=== PATIENT | female | born 1950 | race Caucasian/White ===

== ENCOUNTER → 2019-09-27 11:03 | Outpatient (CLI) | payer MEDICARE, SELFPAY ==
--- NOTE | 2019-09-27 11:08 | XR_ITS ---
PROCEDURE: XR FOOT WT BEARING RT 3V CLINICAL INDICATION: pain Foot pain a COMPARISON: FTR3 FOOT-RT-3 VIEWS from 07/17/2015 FTL3 FOOT-LT-3 VIEWS from 07/17/2015 FINDINGS: No fracture or dislocation. No lytic or blastic change. There is normal mineralization. The there is mild hallux valgus with mild osteoarthritis of the 1st MTP joint. Hammertoe deformity is present at the 2nd toe. Other findings:None. IMPRESSION: Hallux valgus. Hammertoe deformity 2nd toe Dictated by: Chavez Villegas MD 09/27/2019 15:07 Electronically signed by Chavez Villegas MD in [place] 09/27/2019 15:07
--- NOTE | 2019-09-27 11:08 | XR_ITS ---
PROCEDURE: XR FOOT WT BEARING LT 3V CLINICAL INDICATION: pain COMPARISON: 07/17/2015 FINDINGS: There is mild hallux valgus with osteoarthritic change of the 1st MTP joint. Bunion formation is noted. There is severe hammertoe deformity of the 2nd toe No fracture or dislocation. No lytic or blastic change other findings:None. IMPRESSION: The the mild hallux valgus with osteoarthritis, bunion formation, and hammertoe deformity of the 2nd toe. Dictated by: Chavez Villegas MD 09/27/2019 15:05 Electronically signed by Chavez Villegas MD in [place] 09/27/2019 15:05
== END ==
PROVIDERS: PCP Internal Medicine; Visit Provider Podiatrist
DX: M79.671 Pain in right foot (principal); M79.672 Pain in left foot
CPT/HCPCS: 73630

== ENCOUNTER → 2019-10-04 14:58 | Outpatient (CLI) | payer MEDICARE, SELFPAY ==
[2019-10-04 17:14] LABS: Alanine Aminotransferase 20 U/L (12-78); Albumin Level 3.9 gm/dL (3.4-5.0); Albumin/Globulin Ratio 1.3 (1.1-1.8); Alkaline Phosphatase 50 U/L (46-116); Anion Gap 13.3 mEq/L (5-15); Aspartate Amino Transferase 17 U/L (15-37); Bilirubin,Total 0.5 mg/dL (0.2-1.0); Blood Urea Nitrogen 10 mg/dL (7-18); Calcium 9.2 mg/dL (8.5-10.1); Carbon Dioxide 26 mmol/L (21.0-32.0); Chloride 102 mmol/L (98-107); Creatinine,Serum 0.83 mg/dL (0.55-1.02); Estimated Glomerular Filt Rate 69 ml/min (>60); GFR (African American) 83 ML/MIN (>60); Globulin 3.1 gm/dl (1.3-3.2); Glucose 76 mg/dL (74-106); Potassium 4.3 mmoL/L (3.5-5.1); Sodium 137 mmol/L (136-145)
[2019-10-08 06:36] LABS: Vitamin D 25 Hydroxy 29.9 ng/mL (30.0-100.0)
== END ==
PROVIDERS: Visit Provider Podiatrist
DX: B35.1 Tinea unguium (principal); Z13.820 Encounter for screening for osteoporosis; E55.9 Vitamin D deficiency, unspecified
CPT/HCPCS: 36415; 80053; 82652

== ENCOUNTER → 2019-10-23 11:09 | Outpatient (CLI) | payer MEDICARE, SELFPAY ==
[2019-10-23 12:59] LABS: Blood Urea Nitrogen 10 mg/dL (7-18); Creatinine,Serum 0.78 mg/dL (0.55-1.02); Estimated Glomerular Filt Rate 74 ml/min (>60); GFR (African American) 89 ML/MIN (>60)
== END ==
PROVIDERS: Visit Provider Podiatrist
DX: Z01.818 Encounter for other preprocedural examination (principal)
CPT/HCPCS: 36415; 82565; 84520

== ENCOUNTER → 2019-10-24 09:13 | Outpatient (CLI) | payer MEDICARE, SELFPAY ==
--- NOTE | 2019-10-24 09:15 | MR_ITS ---
PROCEDURE: MR FOOT LT WO/W CON CLINICAL INDICATION: pain, surgical planning Hammertoe deformity, bunion, acquired hallux valgus, subchondral cystic evaluation 1st and 2nd metatarsal heads, plantar plate tear, subchondral bone cyst COMPARISON: XR FOOT WT BEARING LT 3V from 09/27/2019 TECHNIQUE: Routine multiplanar multi echo sequences are performed without and with gadolinium enhancement. FINDINGS: There is moderate hallux valgus with osteoarthritic change of the 1st MTP joint. Hammertoe deformity involves the 2nd toe with medial angulation of the toe overlapping the 1st toe dorsally. There is a small cystic area along the lateral aspect of the interphalangeal joint of the great toe measuring approximately 4-5 mm. There is some soft tissue swelling along the plantar aspect of the 1st metatarsophalangeal junction without significant enhancement. No subchondral cystic change at the 1st metatarsophalangeal joint. No obvious ligamentous or tendinous abnormalities. Small amount fluid is present along the posterior aspect of the talocalcaneal joint. No enhancing lesions that would indicate osteomyelitis. Small subchondral cysts are present at the distal aspect of the fibula. IMPRESSION: 1. Hallux valgus with osteoarthritis of the 1st MTP joint. No subchondral cystic change. Small cystic areas present lateral to the 1st interphalangeal joint 2. Hammertoe deformity 2nd toe 3. Mild amount of soft tissue edema along the plantar surface of the foot at the 1st and 2nd metatarsal phalangeal junctions Dictated by: Chavez Villegas MD 10/25/2019 09:35 Electronically signed by Chavez Villegas MD in [place] 10/29/2019 06:54
--- NOTE | 2019-10-24 09:15 | XR_ITS ---
PROCEDURE: XR DEXA AXIAL SKELETON CLINICAL HISTORY: surgical planning, family hx COMPARISON: No exams were available for comparison FINDINGS: L1-L4 density is 1.172 grams/centimeters sq with a T-score of -0.1. Right femoral neck density is 0.823 grams/centimeters sq with T-score of -1.5 consistent with osteopenia. IMPRESSION: Osteopenia with moderate fracture risk. Treatment advised. Suggest follow-up exam in 2 years Dictated by: Chavez Villegas MD 10/24/2019 16:31 Electronically signed by Chavez Villegas MD in [place] 10/24/2019 16:31
--- NOTE | 2019-10-24 10:50 | HMH.ITSHM ---
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 [PREMARIN SYNTHROID WELLBUTRIN
== END ==
PROVIDERS: PCP Internal Medicine; Visit Provider Podiatrist
DX: M81.0 Age-related osteoporosis without current pathological fracture (principal); M20.11 Hallux valgus (acquired), right foot; M20.12 Hallux valgus (acquired), left foot
CPT/HCPCS: 73720; 77080; A9576

== ENCOUNTER → 2020-01-09 13:24 | Outpatient (POV) | payer MEDICARE, SELFPAY | DX: Z00.00 Encounter for general adult medical examination without abnormal findings (principal) ==

== ENCOUNTER → 2020-05-30 09:43 | Outpatient (CLI) | payer MEDICARE, SELFPAY ==
--- NOTE | 2020-05-30 09:49 | XR_ITS ---
PROCEDURE: XR HIP LT 2-3V W/PELVIS CLINICAL INDICATION: L HIP AND PELVIS PAIN COMPARISON: No exams were available for comparison FINDINGS: No fracture or dislocation is evident. No significant degenerative change. No lytic or blastic change. Unremarkable soft tissues. IMPRESSION: No acute findings. Dictated by: Dr. Dariel Umaña MD 05/30/2020 10:[address] Dariel Umaña MD in [place] 05/30/2020 10:08
== END ==
PROVIDERS: PCP Internal Medicine; Visit Provider Internal Medicine
DX: M25.552 Pain in left hip (principal); R10.2 Pelvic and perineal pain
CPT/HCPCS: 73502

== ENCOUNTER 2020-06-30 10:27 | Emergency (ER) | payer MEDICARE, SELFPAY ==
[2020-06-30 10:29] VITALS: BP 143/71; PULSE 98; RESP 18; TEMP 36.9; O2SAT 98; BMI 29.2
--- NOTE | 2020-06-30 10:42 | PC.NURSE ---
Pt up to restroom
--- NOTE | 2020-06-30 10:47 | HMH.EDGENADL ---
ED Disposition Clinical Impression: Nausea, Malaise Disposition: Home, Self-Care Condition on Discharge: Good Instructions: DI for Nausea -- Adult, DI for Viral Syndrome Prescriptions: Promethazine HCl 12.5 mg PO Q6 PRN #8 tab PRN Reason: Nausea Transmission Status: Pending to [facility] Referrals: Owen Laura [Primary Care Provider] - 3 days - Critical Care Critical Care Time: No Attestation: On , the high probability of a clinically significant, sudden or life threatening deterioration of the following system(s) required my full and direct attention, intervention and personal management. The time I documented below is in addition to time spent performing reported procedures but includes the following listed in this critical care notation. Medical Decision Making - Medical Records Medical records reviewed: Yes: I reviewed the patient's medical records. - Matthieu Inquiry Pt receiving controlled substance: No Vital Signs: 06/30/20 10:29 06/30/20 11:01 Temperature 98.5 F Temperature Source Oral Pulse Rate [Right] 98 H 88 Respiratory Rate 18 Blood Pressure [Right Arm] 143/71 H 124/70 Blood Pressure Mean [Right Arm] 95 88 Blood Pressure Source [Right Arm] Automatic Cuff Blood Pressure Position [Right Arm] Sitting 02 Sat by Pulse Oximetry 98 97 Oxygen Delivery Method Room Air - Lab Data Lab results reviewed: Yes: I reviewed the patient's lab results. Lab Results 06/30/20 10:52: Urine Color Yellow, Urine Appearance Clear, Urine pH 5.5, Ur Specific [place] 1.015, Urine Protein Negative, Urine Glucose (UA) Negative, Urine Ketones Negative, Urine Blood Negative, Urine Nitrate Negative, Urine Bilirubin Negative, Urine Urobilinogen 0.2, Ur Leukocyte Esterase Negative, Urine WBC 3-5, Ur Squamous Epith Cells 5-10 06/30/20 11:20: WBC 7.3, RBC 4.09 L, Hgb 12.8, Hct 37.9, MCV 92.8, MCH 31.4 H, MCHC 33.8, RDW 13.4, Plt Count 324, MPV 8.3, Neut % (Auto) 67.0, Lymph % (Auto) 27.0, [place] % (Auto) 3.7, Eos % (Auto) 1.9, Baso % (Auto) 0.5, Neut # (Auto) 4.9, Lymph # (Auto) 2.0, [place] # (Auto) 0.3, Eos # (Auto) 0.1, Baso # (Auto) 0.0 06/30/20 11:20: Sodium 140, Potassium 3.7, Chloride 105, Carbon Dioxide 27, Anion Gap 11.7, BUN 6 L, Creatinine 0.70, Estimated Creat Clear 65, Estimated GFR 83, Est GFR ( Amer) 101, Glucose 92, Calcium 9.3, Total Bilirubin 0.6, AST 20, ALT 14, Alkaline Phosphatase 130 H, Troponin I < 0.01, Total Protein 6.7, Albumin 4.0, Globulin 2.7, Albumin/Globulin Ratio 1.5, Lipase 36 06/30/20 11:20: Lactate 1.2 Result diagrams: 06/30/20 11:20 06/30/20 11:20 Orders (Tests/Meds): ED MEDICATIONS Generic Name Dose Route Start Last Admin Trade Name Freq PRN Reason Stop Dose Admin Sodium Chloride 1,000 mls @ 999 mls/hr 06/30/20 11:15 06/30/20 11:30 Sod Chlor 0.9% 1000ml Bag IV 06/30/20 12:15 999 mls/hr .Q1H1M ZAC Administration Discontinued Medications Generic Name Dose Route Start Last Admin Trade Name Freq PRN Reason Stop Dose Admin Ondansetron HCl 4 mg 06/30/20 10:41 06/30/20 10:51 Zofran 4mg Odt SL 06/30/20 10:42 4 mg ONCE ONE Administration - ECG Data Tracing #1 EKG at 1137 shows normal sinus rhythm with a rate of 82. No acute ST segment elevation or depression. No hyperacute T waves. Normal intervals. EKG interpreted by me. Medical Decision Narrative: Afebrile here, shows some slight dehydration in her lab work, is given a liter of fluids. She has no urinary tract infection, no signs of biliary obstruction or pancreatitis. She has a nontender abdomen and no chest pain so I have low suspicion at this time for acute abdomen such as perforated viscus, bowel obstruction, biliary obstruction, diverticulitis or appendicitis. EKG and troponin are negative and patient has no chest pain, unlikely ACS. Possible viral syndrome. Recommended staying home until 3 days symptom-free and following up with primary care provider. She is
[2020-06-30 10:54] LABS: Microscopic, Urine URINE MICROSCOPIC (MICROSCOPIC)
[2020-06-30 10:55] LABS: Appearance,Urine CLEAR (Clear); Bilirubin,Urine Negative (Negative); Blood, Urine Negative (Negative); Color,Urine YELLOW (Yellow); Glucose,Urine (UA) Negative (Negative); Ketones,Urine Negative (Negative); Leukocyte Esterase,Urine Negative (Negative); Nitrate,Urine Negative (Negative); PH,Urine 5.5 (5.0-8.5); Protein,Urine Negative (Negative); Specific Gravity, Urine 1.015 (1.005-1.030); Urobilinogen,Urine 0.2 EU/dl (0.2)
[2020-06-30 11:01] VITALS: BP 124/70; PULSE 88; O2SAT 97
[2020-06-30 11:27] LABS: Basophils % 0.5 % (0.1-2.0); Eosinophils # 0.1 K/mm3 (0.0-0.4); Eosinophils % 1.9 % (0.1-12.0); Hematocrit 37.9 % (37.0-47.0); Hemoglobin 12.8 g/dL (12.2-16.2); Mean Corpuscular HGB Conc 33.8 g/dL (31.8-35.4); Mean Corpuscular Hemoglobin 31.4 pg (27.0-31.2); Mean Corpuscular Volume 92.8 fl (81-99); Mean Platelet Volume 8.3 fl (7.4-10.4); Monocytes # 0.3 K/mm3 (0.1-1.0); Monocytes % 3.7 % (1.7-9.3); Neutrophils # 4.9 K/mm3 (1.8-7.8); Platelet Count 324 K/mm3 (142-424); Red Blood Count 4.09 M/mm3 (4.20-5.40); Red Cell Distribution Width 13.4 % (11.5-17.5); White Blood Count 7.3 K/mm3 (4.8-10.8)
[2020-06-30 11:34] LABS: Chloride 105 mmol/L (98-107); Potassium 3.7 mmoL/L (3.5-5.1); Sodium 140 mmol/L (136-145)
[2020-06-30 11:36] LABS: Blood Urea Nitrogen 6 mg/dl (7-17); Creatinine Clearance Estimated 65 mL/min (50-200); Estimated Glomerular Filt Rate 83 ml/min (>60); GFR (African American) 101 ML/MIN (>60); Lactic Acid 1.2 mmol/L (0.7-2.1)
[2020-06-30 11:37] LABS: Alanine Aminotransferase 14 U/L (12-78); Albumin/Globulin Ratio 1.5 (1.1-1.8); Alkaline Phosphatase 130 U/L (38-126); Anion Gap 11.7 mEq/L (5-15); Aspartate Amino Transferase 20 U/L (14-36); Bilirubin,Total 0.6 mg/dl (0.2-1.3); Calcium 9.3 mg/dl (8.4-10.2); Carbon Dioxide 27 mmol/L (22.0-30.0); Globulin 2.7 g/dL (1.3-3.2); Glucose 92 mg/dl (74-100); Lipase 36 U/L (23-300); Total Protein,Serum 6.7 g/dl (6.3-8.2)
--- NOTE | 2020-06-30 11:37 | ECG_ITS ---
APPROVED REPORT Exam: Resting ECG HR:82 bpm ECG Measurements Heart Rate 82 AXES OR 180 P 44 QRSd 94 QRS 23 QT 378 T 28 QTc 441 <Conclusion> Normal sinus rhythm Possible Left atrial enlargement Borderline ECG Electronically signed by : Juan Hart, 07/02/2020 17:33:30
[2020-06-30 11:51] LABS: Troponin I < 0.01 ng/ml (0.00-0.034)
[2020-06-30 11:57] VITALS: BP 142/67; PULSE 88; O2SAT 99
[2020-06-30 12:14] VITALS: BP 142/67; PULSE 88; RESP 18; TEMP 36.9; O2SAT 98
== END 2020-06-30 12:16 | disposition home or self-care (01) ==
PROVIDERS: Emergency Provider Emergency Medicine; PCP Internal Medicine
DX: R11.0 Nausea (principal); R53.81 Other malaise; R51 Headache; F33.1 Major depressive disorder, recurrent, moderate; E03.9 Hypothyroidism, unspecified
CPT/HCPCS: 80053; 81001; 83605; 83690; 84484; 85025; 93005; 96365; 96367; 96375; 99283; 99284

== ENCOUNTER 2020-12-15 12:58 | Emergency (ER) | payer MEDICARE, SELFPAY ==
[2020-12-15 13:00] VITALS: BP 119/60; PULSE 86; RESP 18; TEMP 36.8; O2SAT 99; BMI 28.0
--- NOTE | 2020-12-15 13:17 | HMH.EDUTC ---
[facility] Disposition Clinical Impression: Encounter for laboratory testing for COVID-19 virus Fatigue Qualifiers: Fatigue type: unspecified Qualified Code(s): R53.83 - Other fatigue Disposition: Home, Self-Care Condition on Discharge: Good Instructions: Fatigue (Alternative Therapy), DI for Fatigue, DI for COVID-19 (Suspected or Confirmed ), Coronavirus Disease 2018, Preventing the Spread of Coronavirus Discharge Instructions Additional Instructions: *Monitor Temp, Over the counter Motrin or Tylenol as directed/as needed Tylenol every 4 hours and Motrin every 6 hours (as long as your family doctor has told you that you can take it) for fever or pain. and straight to ER if unable to lower temp less than 101.0 after medication given *Warm salt water gargles may help to soothe the throat *Throat Lozenges *Warm fluids like tea with honey may help to soothe the throat *Sleep elevated *Humidifier/Vaporizer Follow up IMMEDIATELY for new or worsening symptoms or no Noticeable improvement over the next 48-72 hours. 911 for difficulty breathing or swallowing You were tested for today for COVID19 your test result should be back in the next 24-48 hours, you may call to the [facility] to see if your test results are back in the next 48 hours [phone] [facility] hours are 9am-9pm You was given a handout with instructions for Self Quarantine and Self isolation for while you wait on test results and what to do if they are positive If you are positive the Health Dept will be contacting you also Referrals: Owen Laura [Primary Care Provider] - As needed Time of Disposition: 13:24 Medical Decision Making - Matthieu Inquiry Pt receiving controlled substance: No Matthieu was queried for this patient: No Vital Signs: 12/15/20 13:00 12/15/20 13:28 Temperature 98.2 F 98.2 F Temperature Source Oral Pulse Rate 86 Pulse Rate [Right Brachial] 86 Respiratory Rate 18 18 Blood Pressure 119/60 Blood Pressure [Right Arm] 119/60 Blood Pressure Mean [Right Arm] 79 Blood Pressure Source [Right Arm] Automatic Cuff Blood Pressure Position [Right Arm] Sitting 02 Sat by Pulse Oximetry 99 Oxygen Delivery Method Room Air Orders (Tests/Meds): ORDERS Category Date Time Status Covid-19 Nasal PCR ([facility]) Routine Lab 12/15/20 13:10 Received Medical Decision Narrative: After speaking with patient and her reported that she fainted earlier this morning recommended that she be transferred to the ED for further work up and evaluation and patient declined transfer and any further testing except COVID States that she is feeling achy and fatigued but other than that she feels ok and she just wants to get tested for COVID Recommended follow up with her PCP and/or straight to ER if any other episodes of syncope or worsening of symptoms [facility] HPI - General Stated complaint: wants covid test Time Seen by Provider: 12/15/20 13:18 Mode of Arrival: Ambulatory Source of Information: Patient Limitations: No Limitations Description of Symptoms (Recalled from Triage Doc. by RN): PATIENT C/O WEAKNESS AND FATIGUE X SEVERAL DAYS. REPORTS SHE FAINTED THIS MORNING; WAS PRESENT AND CAUGHT HER BEFORE SHE COULD HIT THE FLOOR. HER DAUGHTER SPOKE WITH PATIENT'S PCP WHO RECOMMENDED PATIENT GET A COVID TEST HEENT Symptoms (Recalled from RN notes): No Resp Symptoms (Recalled from RN notes): No Skin Symptoms (Recalled from RN notes): No MS Symptoms (Recalled from RN notes): No Functional Status (Recalled from RN notes): WNL - History of Present Illness Provider Complaint: Patient states that she has been feeling weak and tired for the last couple of days States that this morning she felt weak like she was going to pass out and she thinks she may have fainted and her was there to keep her from hitting the floor States that her daughter was worried and called her PCP and they recommended that she come in and get tested for COVID States that she if feeling ok right
[2020-12-15 13:28] VITALS: BP 119/60; PULSE 86; RESP 18; TEMP 36.8; O2SAT 99
== END 2020-12-15 13:31 | disposition home or self-care (01) ==
PROVIDERS: Emergency Provider Nurse Practitioner; PCP Internal Medicine
DX: R55 Syncope and collapse (principal); Z20.822 Contact with and (suspected) exposure to COVID-19; R53.83 Other fatigue; F33.1 Major depressive disorder, recurrent, moderate; E03.9 Hypothyroidism, unspecified; Z79.899 Other long term (current) drug therapy
CPT/HCPCS: G0463; 99202; U0003

== ENCOUNTER → 2021-02-25 13:30 | Outpatient (POV) | payer MEDICARE, SELFPAY | DX: Z00.00 Encounter for general adult medical examination without abnormal findings (principal) ==

== ENCOUNTER → 2021-04-03 10:44 | Outpatient (CLI) | payer MEDICARE, SELFPAY | PROVIDERS: Visit Provider Internal Medicine Gastroenterology | DX: Z01.812 Encounter for preprocedural laboratory examination (principal); Z20.822 Contact with and (suspected) exposure to COVID-19; Z12.11 Encounter for screening for malignant neoplasm of colon | CPT/HCPCS: U0003 ==

== ENCOUNTER 2021-04-06 09:16 | Day surgery (SDC) | payer MEDICARE, SELFPAY ==
[2021-03-31 10:24] VITALS: BMI 28.3
[2021-04-06 09:51] VITALS: BP 138/62; PULSE 67; RESP 18; TEMP 36.2; O2SAT 100
--- NOTE | 2021-04-06 10:15 | HMH.ANESCL ---
[facility] Anesthesia Checklist - Patient Identification Patient Identification: Arm Band - Structural Data Admitted From: Home Planned Operative Procedure/s: Colonoscopy Consent for Planned Operative Procedure(s) Verified: Yes - NPO Status Verified Time NPO: 00:00 - Additional verifications Anesthesia Reactions: Yes (feels like she cant breath when waking up) - Airway Assessment C-Spine Mobility Assessed: Yes TMJ Mobility Assessed: Yes Dentition: Good Dentition - Neurological Assessment Level of Consciousness: Awake Hx Seizures: No Numbness or tingling in extremities: No - Anesthesia Plan Anesthesia Risk discussed: Yes Anesthesia Plan: Verified ASA Class: II Anesthesia Type: MAC [facility] History I have reviewed the patient's past medical history: Yes Medical History: Reports:: Depression Denies:: Cancer, Diabetes Mellitus Type 1, Diabetes Mellitus Type 2, Internal Pacemaker, Lung Disease, MRSA, Seizures *Have you ever received a pneumonia vaccine?: No *Have you received a flu vaccine this season?: Yes Other Medical History: Reports: Arthritis, Hypothyroidism, Sinus Problems Anesthesia experience/problems:: None Other Surgeries: Yes: Hysterectomy-Total, Hysterectomy-Partial. No: Pacemaker Amputation: No Fractures: No - *Social History Last grade of school completed: Advanced degree Smoking Status: Never smoker Alcohol Intake: never Alcohol Intake Frequency:: other Substance Use Type: denies use *Occupational Status:: other Housing: house Household Members: spouse *Travel in the last 8 weeks: None - Psychiatric History Pschychiatric History:: Reports:: Depression Family Hx:: Diabetes, Stroke, Hypertension, Hyperlipidemia, Thyroid Disorder, Cancer
[2021-04-06 10:44] VITALS: O2SAT 98
--- NOTE | 2021-04-06 11:13 | HMH.PROC ---
[facility] Procedure Note Procedure Note:: Colonoscopy Procedure Report: Colonoscopy with cold snare polypectomy and hemorrhoid band ligation Endoscopist: Karri Wilson II, MD Referring physician: Owen Laura MD Date of Procedure: April 06, 2021 Equipment: Olympus 190 variable stiffness pediatric colonoscope Sedation: MAC sedation Indication: Mrs. Coronado is a 70-year-old female who is here for repeat surveillance colonoscopy secondary to a personal history of advanced adenomatous colon polyps. She did have a colonoscopy in February 2018 and had a 30 mm adenomatous polyp of the rectum and 2 additional diminutive adenomatous polyps. Based upon the large size and advanced adenomatous nature, I did recommend surveillance at 2 years. She reports frequent and regular hemorrhoidal bleeding with her bowel movements and is requesting hemorrhoid banding. The patient does have moderate bloating with some abdominal discomfort. She does have a history of constipation. She reports no weight loss or family history of colon cancer. Procedure: Prior to the procedure, a history and physical exam was performed, and patient's medications and allergies were reviewed. The risks, benefits and alternatives of the sedation and procedure were discussed with the patient. All questions were answered and informed consent was obtained. The patient was brought to the procedure room. Patient identification and proposed procedure were verified by the physician and the nurse. The patient was placed in a left lateral decubitus position and the scope was passed under direct vision. Throughout the procedure, the patient's blood pressure, pulse, and oxygen saturations were monitored continuously. The colonoscopy was accomplished without difficulty. The patient tolerated the procedure well. Findings: On digital rectal examination there was normal rectal tone. There were external hemorrhoidal tags. The colonoscope was introduced through the anal canal to the rectum and advanced to the cecum. The ileocecal valve and appendiceal orifice were identified. The scope was advanced a short distance into the ileum which appeared grossly normal. The scope was then withdrawn into the colon. There were 3 colon polyps identified (cecum x1 (5 mm), descending x1 (4 mm) and rectum x1 (11 mm)) which were all removed via cold snare polypectomy. The remaining cecum, ascending and transverse colon and mucosa were grossly normal. There were scattered diverticuli throughout the descending and sigmoid colon (LEFT colon). The rectum itself was normal. Upon retroflexion within the rectum there were grade 2 internal hemorrhoids. 3 columns of hemorrhoids were banded using 3 bands with excellent ligation effect. The preparation was excellent throughout with [place] Preparation Score of 9. The cecal time was 12 minutes. Impression: 1. Colonic polyps x3 2. Left-sided diverticulosis 3. Grade 2 internal hemorrhoids status post band ligation x3 Plan: I will follow up the polyp pathology and recommend repeat colonoscopy again in 5 years based upon the polyp histology. I would encourage a fiber bowel regimen on a long-term daily maintenance basis. I am aware that she does get bloating and I do feel that if she uses the dietary measures with the fiber bowel regimen routinely her bloating should diminish. This bloating is due to fecal retention with colonic fermentation/gas formation. The other alternative would be use of Zelnorm with some bulk. I would consider C 13 sucrose breath testing because of her chronic bloating.
[2021-04-06 11:24] VITALS: BP 109/64; PULSE 69; RESP 18; TEMP 36.1; O2SAT 98
[2021-04-06 11:34] VITALS: BP 117/66; PULSE 71; RESP 18; O2SAT 99
[2021-04-06 11:44] VITALS: BP 138/69; PULSE 57; RESP 18; O2SAT 100
[2021-04-06 12:01] VITALS: BP 142/68; PULSE 59; RESP 18; O2SAT 99
== END 2021-04-06 12:10 | disposition home or self-care (01) ==
LOC: OUTP 09:17
PROVIDERS: PCP Internal Medicine; Visit Provider Internal Medicine Gastroenterology
PROC: 0DJD8ZZ Inspection of Lower Intestinal Tract, Via Natural or Artificial Opening Endoscopic (ICD-10-PCS; CPT 45378; principal; 2021-04-06 10:30)
DX: Z12.11 Encounter for screening for malignant neoplasm of colon (principal); K62.1 Rectal polyp; K63.5 Polyp of colon; K57.30 Diverticulosis of large intestine without perforation or abscess without bleeding; K64.1 Second degree hemorrhoids; Z86.010 Personal history of colon polyps; F32.9 Major depressive disorder, single episode, unspecified; M19.90 Unspecified osteoarthritis, unspecified site; E03.9 Hypothyroidism, unspecified; Z83.3 Family history of diabetes mellitus; Z82.3 Family history of stroke; Z82.49 Family history of ischemic heart disease and other diseases of the circulatory system; Z83.49 Family history of other endocrine, nutritional and metabolic diseases
CPT/HCPCS: 45385; 45398; 88305

== ENCOUNTER → 2022-03-16 13:10 | Outpatient (CLI) | payer MEDICARE, SELFPAY ==
[2022-03-16 14:18] LABS: Basophils # 0.1 K/mm3 (0-0.2); Eosinophils # 0.1 K/mm3 (0.0-0.4); Eosinophils % 2.3 % (0.1-12.0); Hematocrit 36.5 % (37.0-47.0); Lymphocytes # 2.5 K/mm3 (0.7-4.5); Lymphocytes % 39.7 % (10-50); Mean Corpuscular HGB Conc 32.8 g/dL (31.8-35.4); Mean Corpuscular Hemoglobin 31.4 pg (27.0-31.2); Mean Corpuscular Volume 95.8 fl (81-99); Mean Platelet Volume 9.3 fl (7.4-10.4); Monocytes # 0.4 K/mm3 (0.1-1.0); Monocytes % 6.4 % (1.7-9.3); Neutrophils # 3.1 K/mm3 (1.8-7.8); Neutrophils % 50.6 % (37.0-80.0); Platelet Count 530 K/mm3 (142-424); Red Blood Count 3.81 M/mm3 (4.20-5.40); Red Cell Distribution Width 14.4 % (11.5-17.5); White Blood Count 6.2 K/mm3 (4.8-10.8)
[2022-03-16 14:33] LABS: Alanine Aminotransferase 14 U/L (12-78); Albumin Level 4.1 g/dl (3.5-5.0); Albumin/Globulin Ratio 1.8 (1.1-1.8); Anion Gap 11.5 mEq/L (5-15); Aspartate Amino Transferase 21 U/L (14-36); Blood Urea Nitrogen 8 mg/dl (7-17); Calcium 9.2 mg/dl (8.4-10.2); Carbon Dioxide 28 mmol/L (22.0-30.0); Chloride 103 mmol/L (98-107); Cholesterol 257 mg/dl (140-200); Estimated Glomerular Filt Rate 99 ml/min (>60); GFR (African American) 120 ML/MIN (>60); Globulin 2.3 g/dL (1.3-3.2); Glucose 80 mg/dl (74-100); HDL Cholesterol 101 mg/dl (40-60); Potassium 4.5 mmoL/L (3.5-5.1); Sodium 138 mmol/L (136-145); Total Protein,Serum 6.4 g/dl (6.3-8.2); Triglycerides 136 mg/dl (30-150); VLDL Cholesterol 27 mg/dL (0-40)
[2022-03-16 14:34] LABS: Alkaline Phosphatase 52 U/L (38-126); Chol/HDL Ratio 2.5 (1-3.5)
[2022-03-16 14:45] LABS: Direct LDL Cholesterol 110.56 mg/dL (100-129)
[2022-03-16 15:02] LABS: Thyroid Stimulating Hormone 0.58 uIU/mL (0.465-4.68)
== END ==
PROVIDERS: PCP Internal Medicine; Visit Provider Internal Medicine
DX: E03.9 Hypothyroidism, unspecified (principal); E78.5 Hyperlipidemia, unspecified; M70.61 Trochanteric bursitis, right hip
CPT/HCPCS: 80053; 80061; 84443; 85025

== ENCOUNTER → 2022-03-23 12:51 | Outpatient (CLI) | payer MEDICARE, SELFPAY ==
[2022-03-23 14:24] LABS: Iron 90 ug/dL (37-170)
[2022-03-23 14:38] LABS: Total Iron Binding Capacity 333 ug/dL (265-497)
== END ==
PROVIDERS: PCP Internal Medicine; Visit Provider Internal Medicine
DX: D64.9 Anemia, unspecified (principal)
CPT/HCPCS: 83540; 83550

== ENCOUNTER → 2022-04-07 10:40 | Outpatient (CLI) | payer MEDICARE, SELFPAY ==
--- NOTE | 2022-04-07 10:53 | XR_ITS ---
FINAL REPORT CLINICAL HISTORY: left knee pain FINDINGS: AP, lateral and oblique views of the left knee were obtained. There is no prior exam for comparison. There is no acute osseous abnormality of the left knee. There is degenerative joint disease which is most pronounced at the patellofemoral compartment. There are several calcifications in the posterior medial soft tissues which could be loose bodies within a popliteal cyst. There is no joint effusion. IMPRESSION: 1. Degenerative joint disease most pronounced at the patellofemoral compartment. 2. Several calcifications in the posterior medial soft tissues which could be loose bodies within a popliteal cyst. Reviewed, Interpreted and Dictated by Ligia Kamara MD Transcribed by Sameera Wong Authenticated by Ligia Kamara MD on 04/07/2022 01:21:11 PM [facility]
== END ==
PROVIDERS: PCP Internal Medicine; Visit Provider Internal Medicine
DX: M25.562 Pain in left knee (principal)
CPT/HCPCS: 73562

== ENCOUNTER → 2022-06-02 15:16 | Outpatient (CLI) | payer MEDICARE, SELFPAY ==
--- NOTE | 2022-06-02 15:29 | XR_ITS ---
FINAL REPORT CLINICAL HISTORY: RT KNEE PAIN, DJD FINDINGS: RIGHT KNEE Three views of the right knee reveal no evidence of fracture or dislocation. The bony alignment is normal. There is mild and moderate degenerative change, greatest involving the patellofemoral joint. There is no evidence of joint effusion. There is a chronic calcification superior to the patella. IMPRESSION: No acute abnormality identified. Reviewed, Interpreted and Dictated by Elvin Thibodeaux III, MD Transcribed by Sameera Wong Authenticated and [facility]
== END ==
PROVIDERS: PCP Internal Medicine; Visit Provider Internal Medicine
DX: M25.561 Pain in right knee (principal); M17.11 Unilateral primary osteoarthritis, right knee
CPT/HCPCS: 73562

== ENCOUNTER → 2022-12-13 15:52 | Outpatient (CLI) | payer MEDICARE, SELFPAY ==
--- NOTE | 2022-12-13 15:56 | XR_ITS ---
FINAL REPORT TECHNIQUE: Chest PA & Lateral CLINICAL HISTORY: PRODUCTIVE COUGH, LIGHT HEADED, HEART FLUTTERS FINDINGS: 2 views of the chest were performed. The heart size is normal. The mediastinum is within normal limits. There is no acute cardiopulmonary process. There are no pleural effusions. There is no pneumothorax. The bony thorax appears intact. IMPRESSION: No acute cardiopulmonary process. Reviewed, Interpreted and Dictated by Elvin Thibodeaux III, MD Transcribed by Ady Ness Authenticated and [facility]
--- NOTE | 2022-12-13 16:15 | ECG_ITS ---
APPROVED REPORT Exam: Resting ECG HR:83 bpm ECG Measurements Heart Rate 83 AXES AK 168 P 56 QRSd 101 QRS 40 QT 349 T 15 QTc 389 Conclusion SINUS RHYTHM NORMAL ECG Electronically signed by : Owen Laura MD 12/15/2022 17:09:12
== END ==
PROVIDERS: PCP Internal Medicine; Visit Provider Internal Medicine
DX: R00.2 Palpitations (principal); R05.9 Cough, unspecified
CPT/HCPCS: 71046; 93005

== ENCOUNTER → 2022-12-17 11:52 | Outpatient (CLI) | payer MEDICARE, SELFPAY ==
[2022-12-17 12:28] LABS: Basophils # 0.1 K/mm3 (0-0.2); Basophils % 0.9 % (0.1-2.0); Eosinophils # 0.2 K/mm3 (0.0-0.4); Eosinophils % 2.1 % (0.1-12.0); Hematocrit 38.9 % (37.0-47.0); Hemoglobin 12.7 g/dL (12.2-16.2); Lymphocytes # 2.6 K/mm3 (0.7-4.5); Lymphocytes % 32.8 % (10-50); Mean Corpuscular HGB Conc 32.7 g/dL (31.8-35.4); Mean Corpuscular Hemoglobin 30.2 pg (27.0-31.2); Mean Corpuscular Volume 92.4 fl (81-99); Mean Platelet Volume 7.9 fl (7.4-10.4); Monocytes # 0.3 K/mm3 (0.1-1.0); Monocytes % 3.8 % (1.7-9.3); Neutrophils # 4.9 K/mm3 (1.8-7.8); Neutrophils % 60.4 % (37.0-80.0); Platelet Count 450 K/mm3 (142-424); Red Blood Count 4.21 M/mm3 (4.20-5.40); Red Cell Distribution Width 13.2 % (11.5-17.5); White Blood Count 8.1 K/mm3 (4.8-10.8)
[2022-12-17 13:45] LABS: Thyroid Stimulating Hormone 0.88 uIU/mL (0.465-4.68)
== END ==
PROVIDERS: PCP Internal Medicine; Visit Provider Internal Medicine
DX: R06.09 Other forms of dyspnea (principal); R00.2 Palpitations
CPT/HCPCS: 36415; 84443; 85025; 93225; 93226

== ENCOUNTER → 2022-12-21 14:15 | Outpatient (CLI) | payer MEDICARE, SELFPAY ==
--- NOTE | 2022-12-21 14:18 | CA_ITS ---
APPROVED REPORT EXAM: Comprehensive 2D, Doppler, and color-flow Echocardiogram Central Supply Supervisor: Sarah Hernandez RVT Ht: 5 ft 3 in Wt: 170lbs BSA: 1.80 BP: 119/71 mmHg Indications: PALPS,SOA 2D Dimensions LVOT 1.82 cm (M/F) 1.5-2.5 LA Volume 43.40 mL LA Volume Index 23.98 mL/m2 (M/F) 16-34 M-Mode Dimensions RVDd 2.16 cm (0.9-2.6) LA Diam 3.53 cm (1.9-4.0) LVDd 5.08 cm (3.5-5.7) Ao Diam 2.56 cm (2.0-3.7) LVDs 3.52 cm (3.5-5.7) IVSd 0.82 cm (0.6-1.1) PWd 0.57 cm (0.6-1.1) EF (Teich) 57.90% FS 30.70% EDV (Teich) 122.70 mL TAPSE 1.94 (<1.7) ESV (Teich) 51.60 mL LV Diastology E Decel Time 150.00 (160-240 msec) E/A Ratio 1.0 MED E' 8.40 (< 7 cm/sec) E'/MED E' Ratio 8.99 (>14) LAT E' 11.10 (<10 cm/sec) E/LAT E' Ratio 6.80 (>14) Aortic Valve AO Peak GR. 5.80 mmHg Mitral Valve MV E Max Anthony. 76.00 (40-130 cm/s) MV A Velocity 74.00 (40-130 cm/s) E/A Ratio 1.02 MV Decel. Time 150.00 (160-240 ms) MV PHT 44.00 ms Pulmonary Valve PV Peak Velocity 68.00 (50-150 cm/s) Tricuspid Valve TR P. Velocity 258.00 cm/s RAP Estimate 10.00 mmHg RVSP 36.70 mmHg Left Ventricle Left atrium is normal size, left ventricle is normal size, estimated ejection fraction 55% with no regional wall motion abnormality, diastolic parameters are within normal range. Right Ventricle Right atrium and left ventricular normal size and contractility. Aortic Valve Aortic valve is minimally thickened and fibrosed there is no aortic stenosis aortic insufficiency. Mitral Valve Micro was grossly normal, there is trace mitral regurgitation. Tricuspid Valve Tricuspid grossly normal, there is trace tricuspid regurgitation, tricuspid regurgitation jet plasty is inadequate for calculation of the right ventricular systolic pressure. Pulmonic Valve Pulmonic valve is poorly visualized. Great Vessels Aortic root is normal size. Inferior vena cava is normal size with normal inspiratory collapse. Pericardium No significant pericardial effusion noted. Conclusion 1. Normal left ventricular size preserved left ventricular systolic function, estimated ejection fraction of 55% with no regional wall motion abnormality, diastolic parameters are within normal range. 2. Trace mitral and tricuspid regurgitation. 3. No significant pericardial effusion noted. 4. Inferior vena cava is normal size with normal inspiratory collapse. Electronically signed by : Sebastian Bain MD 12/21/2022 19:12:53
== END ==
PROVIDERS: PCP Internal Medicine; Visit Provider Internal Medicine
DX: R06.02 Shortness of breath (principal); R00.2 Palpitations
CPT/HCPCS: 93306

== ENCOUNTER → 2023-03-16 11:49 | Outpatient (CLI) | payer MEDICARE, SELFPAY ==
[2023-03-16 12:36] LABS: Basophils % 0.5 % (0.1-2.0); Eosinophils # 0.2 K/mm3 (0.0-0.4); Eosinophils % 3.7 % (0.1-12.0); Hematocrit 35.7 % (37.0-47.0); Hemoglobin 11.4 g/dL (12.2-16.2); Lymphocytes # 2.1 K/mm3 (0.7-4.5); Lymphocytes % 35.7 % (10-50); Mean Corpuscular HGB Conc 31.8 g/dL (31.8-35.4); Mean Corpuscular Hemoglobin 29.5 pg (27.0-31.2); Mean Corpuscular Volume 92.6 fl (81-99); Mean Platelet Volume 10.8 fl (7.4-10.4); Monocytes # 0.3 K/mm3 (0.1-1.0); Monocytes % 5.8 % (1.7-9.3); Neutrophils # 3.2 K/mm3 (1.8-7.8); Neutrophils % 54.4 % (37.0-80.0); Platelet Count 486 K/mm3 (142-424); Red Blood Count 3.86 M/mm3 (4.20-5.40); Red Cell Distribution Width 13.6 % (11.5-17.5); White Blood Count 5.9 K/mm3 (4.8-10.8)
[2023-03-16 12:49] LABS: Chloride 98 mmol/L (98-107); Sodium 136 mmol/L (136-145)
[2023-03-16 12:50] LABS: Potassium 4.7 mmoL/L (3.5-5.1)
[2023-03-16 12:52] LABS: Alanine Aminotransferase 14 U/L (12-78); Albumin Level 4.2 g/dl (3.5-5.0); Albumin/Globulin Ratio 1.8 (1.1-1.8); Alkaline Phosphatase 50 U/L (38-126); Anion Gap 16.7 mEq/L (5-15); Aspartate Amino Transferase 24 U/L (14-36); Bilirubin,Total 0.6 mg/dl (0.2-1.3); Blood Urea Nitrogen 13 mg/dl (7-17); Carbon Dioxide 26 mmol/L (22.0-30.0); Cholesterol 249 mg/dl (140-200); Estimated Glomerular Filt Rate 99 ml/min (>60); GFR (African American) 120 ML/MIN (>60); Globulin 2.4 g/dL (1.3-3.2); Total Protein,Serum 6.6 g/dl (6.3-8.2); Triglycerides 122 mg/dl (30-150); VLDL Cholesterol 24 mg/dL (0-40)
[2023-03-16 12:53] LABS: Calcium 9.1 mg/dl (8.4-10.2); Glucose 78 mg/dl (74-100)
[2023-03-16 13:04] LABS: Direct LDL Cholesterol 113.66 mg/dL (100-129)
[2023-03-16 13:15] LABS: HDL Cholesterol 124 mg/dl (40-60)
[2023-03-16 13:24] LABS: Thyroid Stimulating Hormone 2.05 uIU/mL (0.465-4.68)
[2023-03-18 12:59] LABS: Iron 51 ug/dL (37-170)
[2023-03-18 13:08] LABS: Total Iron Binding Capacity 392 ug/dL (265-497)
[2023-03-18 13:09] LABS: Vitamin B12 230 pg/mL (239-931)
== END ==
PROVIDERS: PCP Internal Medicine; Visit Provider Internal Medicine
DX: E03.9 Hypothyroidism, unspecified (principal); E78.5 Hyperlipidemia, unspecified; K59.01 Slow transit constipation; M79.7 Fibromyalgia; N95.1 Menopausal and female climacteric states; E61.1 Iron deficiency
CPT/HCPCS: 80053; 80061; 82607; 83540; 83550; 84443; 85025

== ENCOUNTER → 2023-10-11 14:55 | Outpatient (POV) | payer MEDICARE, SELFPAY | PROVIDERS: PCP Internal Medicine; Visit Provider Dermatology | DX: Z00.00 Encounter for general adult medical examination without abnormal findings (principal) ==

== ENCOUNTER 2023-11-16 15:32 | Outpatient (CLI) | payer MEDICARE, SELFPAY ==
--- NOTE | 2023-11-16 15:38 | XR_ITS ---
FINAL REPORT CLINICAL HISTORY: RT ANKLE INJURY FINDINGS: Right ankle Three views were obtained. There is no acute fracture or dislocation. The joint spaces appear normal. No soft tissue abnormality is identified. IMPRESSION: No acute process. Reviewed, Interpreted and Dictated by Elvin Thibodeaux III, MD Transcribed by Roselyn Hoyt Authenticated and [facility]
== END 2023-11-16 23:59 ==
LOC: RAD 15:34
PROVIDERS: PCP Internal Medicine; Visit Provider Internal Medicine
DX: S99.911A Unspecified injury of right ankle, initial encounter (principal); Y99.9 Unspecified external cause status
CPT/HCPCS: 73610

== ENCOUNTER 2024-03-21 10:01 | Outpatient (CLI) | payer MEDICARE, SELFPAY ==
[2024-03-21 10:53] LABS: Basophils % 0.8 % (0.1-2.0); Eosinophils # 0.1 K/mm3 (0.0-0.4); Eosinophils % 1.9 % (0.1-12.0); Hematocrit 37.6 % (37.0-47.0); Lymphocytes # 2.3 K/mm3 (0.7-4.5); Lymphocytes % 39.8 % (10-50); Mean Corpuscular HGB Conc 31.9 g/dL (31.8-35.4); Mean Corpuscular Hemoglobin 29.4 pg (27.0-31.2); Mean Corpuscular Volume 92.1 fl (81-99); Mean Platelet Volume 8.6 fl (7.4-10.4); Monocytes # 0.3 K/mm3 (0.1-1.0); Monocytes % 5.4 % (1.7-9.3); Neutrophils % 52.2 % (37.0-80.0); Platelet Count 437 K/mm3 (142-424); Red Blood Count 4.08 M/mm3 (4.20-5.40); Red Cell Distribution Width 14.7 % (11.5-17.5); White Blood Count 5.8 K/mm3 (4.8-10.8)
[2024-03-21 11:27] LABS: Erythrocyte Sedimentation Rate 23 mm/hr (0-30)
[2024-03-21 11:28] LABS: Chloride 104 mmol/L (98-107); Potassium 4.7 mmoL/L (3.5-5.1); Sodium 137 mmol/L (136-145)
[2024-03-21 11:30] LABS: Blood Urea Nitrogen 11 mg/dl (7-17); Estimated Glomerular Filt Rate 82 ml/min (>60); GFR (African American) 100 ML/MIN (>60)
[2024-03-21 11:31] LABS: Alanine Aminotransferase 17 U/L (12-78); Albumin Level 3.9 g/dl (3.5-5.0); Albumin/Globulin Ratio 1.6 (1.1-1.8); Alkaline Phosphatase 64 U/L (38-126); Anion Gap 9.7 mEq/L (5-15); Aspartate Amino Transferase 27 U/L (14-36); Bilirubin,Total 0.7 mg/dl (0.2-1.3); Calcium 9.8 mg/dl (8.4-10.2); Carbon Dioxide 28 mmol/L (22.0-30.0); Cholesterol 306 mg/dl (140-200); Globulin 2.5 g/dL (1.3-3.2); Glucose 82 mg/dl (74-100); Total Protein,Serum 6.4 g/dl (6.3-8.2); Triglycerides 130 mg/dl (30-150); VLDL Cholesterol 26 mg/dL (0-40)
[2024-03-21 11:38] LABS: Chol/HDL Ratio 2.1 (1-3.5); HDL Cholesterol 143 mg/dl (40-60)
[2024-03-21 11:42] LABS: Direct LDL Cholesterol 141.05 mg/dL (100-129)
[2024-03-21 12:01] LABS: Thyroid Stimulating Hormone 2.08 uIU/mL (0.465-4.68)
== END 2024-03-21 23:59 | disposition home or self-care (01) ==
LOC: LAB.DROPOF 10:01
PROVIDERS: PCP Internal Medicine; Visit Provider Internal Medicine
DX: E78.5 Hyperlipidemia, unspecified; E03.8 Other specified hypothyroidism; M17.0 Bilateral primary osteoarthritis of knee; J31.0 Chronic rhinitis; K59.01 Slow transit constipation; I10 Essential (primary) hypertension; M79.7 Fibromyalgia; Z68.27 Body mass index [BMI] 27.0-27.9, adult; E66.3 Overweight
CPT/HCPCS: 80053; 80061; 84443; 85025; 85651

== ENCOUNTER 2024-05-10 07:37 | Outpatient (CLI) | payer MEDICARE, SELFPAY ==
--- NOTE | 2024-05-10 07:38 | NM_ITS ---
APPROVED REPORT Exam: Nuclear Stress Test Indication: soa..palpitations..syncope..abn ECG Patient Location: Outpatient Stress Tech: Naomi Roach SC Tech:Reva Martinez, ARRT RT(R)(N) Ht: 5 ft 3 in Wt: 155 lbs Bra Size: 36dd HR: 58 bpm BP: 170/75 mmHg BSA: 1.74 m2 Rhythm: NSR TID: 1.08 BMI: 27.4 History: soa..palpitations..syncope..abn ECG Procedure: Patient received 0.4 mg of intravenous Lexiscan, resting heart rate 58 bpm, resting blood pressure 170/75 mmHg, with Lexiscan maximum heart rate achieved was 85 bpm which is 85 % of the maximum predicted heart rate and blood pressure was 170/75 mmHg. With Lexiscan, patient denied any complaint of chest pain. Cardiac Stress and Resting SPECT Images: Cardiac Stress and Resting SPECT images were obtained using technetium 99m Myoview 31.8 mCi stress and 10.32 mCi at rest. Resting and stress imaging in supine and prone positions demonstrate no evidence of fixed or reversible perfusion defects. Gated imaging demonstrates normal global and regional LV systolic function. LVEF cannot be calculated due to technical limitations during image acquisition. Conclusion: No evidence of fixed or reversible perfusion defects. Gated imaging demonstrates normal global and regional LV systolic function. LVEF cannot be calculated due to technical limitations during image acquisition. Electronically signed by : Jeaneth Villavicencio MD 05/13/2024 22:17:36
[2024-05-10] MEDS: REGADENOSON 0.4MG/5ML SYRINGE 0.4 MG IV (08:46)
[2024-05-10] MEDS: ISOTOPE MYOVIEW (PER STUDY) 1 DOSE IV (08:47)
[2024-05-10] MEDS: SODIUM CHLORIDE 0.9% 10ML SYR (RAD ONLY) 10 ML IV ×2 (08:47)
--- NOTE | 2024-05-10 08:49 | CA_ITS ---
APPROVED REPORT EXAM: Comprehensive 2D, Doppler, and color-flow Echocardiogram Head Men'S Tennis Coach: Kiley Stevens CRT Ht: 5 ft 2 in Wt: 156lbs BSA: 1.72 BP: 144/78 mmHg Indications: Abnormal ECG, Shortness of Breath, Hypertension/HDD 2D Dimensions LA Volume 40.10 mL LA Volume Index 22.80 mL/m2 (M/F) 16-34 M-Mode Dimensions RVDd 2.78 cm (0.9-2.6) LA Diam 3.25 cm (1.9-4.0) LVDd 4.76 cm (3.5-5.7) LVDs 3.34 cm (3.5-5.7) IVSd 1.04 cm (0.6-1.1) PWd 0.65 cm (0.6-1.1) EF (Teich) 56.90% FS 29.80% EDV (Teich) 105.40 mL TAPSE 1.94 (<1.7) ESV (Teich) 45.40 mL LV Diastology E Decel Time 123 (160-240 msec) E/A Ratio 1.02 MED A' 6.70 cm/s LAT A' 6.60 cm/s Aortic Valve AO Peak GR. 5.20 mmHg Mitral Valve MV E Max Anthony. 64.0 (40-130 cm/s) MV A Velocity 63.0 (40-130 cm/s) E/A Ratio 1.02 MV PHT 36.0 ms Pulmonary Valve PV Peak Velocity 148.0 (50-150 cm/s) Tricuspid Valve TR P. Velocity 233.00 cm/s RAP Estimate 10.00 mmHg RVSP 31.80 mmHg Left Ventricle The left ventricle is normal size. The left ventricular systolic function is normal. The left ventricular ejection fraction is within the normal range. There is normal left ventricular wall thickness. There is normal LV segmental wall motion. The left ventricular diastolic function is normal. LVEF is 55%. Right Ventricle The right ventricle is normal size. The right ventricular systolic function is normal. Atria The left atrium size is normal. The right atrium size is normal. There is no Doppler evidence of interatrial shunt. Aortic Valve The aortic valve opens well. There is no aortic valvular stenosis. No aortic regurgitation is present. Mitral Valve The mitral valve is normal in structure. No evidence of mitral valve stenosis. Trace mitral regurgitation. Tricuspid Valve The tricuspid valve leaflets are thin and pliable. Mild tricuspid regurgitation. RVSP is 20-25 mmHg. Pulmonic Valve The pulmonary valve is normal in structure. Mild pulmonic regurgitation. Great Vessels The aortic root is normal in size. The ascending aorta is not well-visualized. IVC is normal in size and collapses >50% with inspiration. Pericardium There is no pericardial effusion. Other Information Study Quality: Adequate Conclusion Normal biventricular systolic function. Mild TR, mild PI. Electronically signed by : Jeaneth Villavicencio MD 05/13/2024 21:31:10
--- NOTE | 2024-05-10 09:13 | CA_ITS ---
APPROVED REPORT Exam: Pharmacologic Technologist: Naomi Longo, Ht: 5 ft 3 in Wt: 162 lbs BSA: 1.77 m2 HR: 61 bpm BP: 170/75 mmHg Rhythm: NSR Medical History Medications: Lorazepam,,,,, Levothyroxine,,,,, Flonase,,,,, Buspirone,,,,, AmiTRIPTYLINE,,,,, LaMotrigine,,,,, MeLATONIN,,,,, Magnesium OXIDE,,,,, Furosemide,,,,, Conjuated estrogens,,,,, Stress Test Details Test: LEXISCAN Reason for pharmacologic stress test: physical limitation. HR Resting HR: 58 bpm Max Heart Rate (APMHR): 149 bpm Max HR Achieved: 85 bpm Target HR (85% APMHR): 127 bpm % of APMHR: 57 Recovery HR: 70 bpm BP Resting BP: 170.0/75.0 mmHg Max BP: 170.0/75.0 mmHg Recovery BP: 156.0/74.0 mmHg ECG Resting ECG: NSR, first degree AV block Stress ECG: No significant ST changes Arrhythmia: None Clinical Exercise duration: 04:00 min Highest Stage Achieved: Exercise capacity: 1.0 METs Stress ECG Conclusion Symptoms: mild chest pressure briefly. Arrhythmias/Ectopy: None ST-T Changes: No significant ST changes. Conclusion: Unremarkable Lexiscan stress. Myoview images reported separately. Test Summary REST . . . . . . . Resting REST 04:52 . . 58 . 170/ 75 . . Stage 1 01:00 . . 78 . . . . Stage 2 01:00 . . 79 . 140/ 69 . . Stage 3 01:00 . . 74 . 149/ 74 . . Stage 4 01:00 . . 70 . 157/ 72 . Stop exercise at 04:00 RECOVERY 01:00 . . 69 . 158/ 73 . . RECOVERY 02:00 . . 71 . 158/ 73 . . RECOVERY 02:55 . . 71 . 156/ 74 . . Electronically signed by : Jeaneth Villavicencio MD 05/13/2024 22:15:29
== END 2024-05-10 23:59 | disposition home or self-care (01) ==
LOC: RAD 07:38
PROVIDERS: PCP Internal Medicine; Visit Provider Nurse Practitioner Family
DX: R94.31 Abnormal electrocardiogram [ECG] [EKG] (principal); R06.09 Other forms of dyspnea
CPT/HCPCS: 78452; 93017; 93018; 93306; A9502; J2785

== ENCOUNTER 2024-10-08 09:54 | Outpatient (CLI) | payer MEDICARE, SELFPAY | END 2024-10-08 23:59 | disposition home or self-care (01) | LOC: LAB 09:56 | PROVIDERS: PCP Internal Medicine; Visit Provider Podiatrist Foot & Ankle Surgery | DX: E55.9 Vitamin D deficiency, unspecified (principal) | CPT/HCPCS: 36415; 82306 ==

== ENCOUNTER 2025-03-21 09:15 | Outpatient (CLI) | payer MEDICARE, SELFPAY ==
[2025-03-21 14:47] LABS: Basophils % 0.7 % (0.1-2.0); Eosinophils # 0.2 Kmm3 (0.0-0.4); Eosinophils % 2.7 % (0.1-12.0); Hemoglobin 10.3 g/dL (12.2-16.2); Immature Granulocytes # 0.05 10^3uL; Immature Granulocytes % 0.9 %; Lymphocytes # 2.4 K/mm3 (0.7-4.5); Lymphocytes % 40.3 % (10-50); Mean Corpuscular HGB Conc 31.2 g/dL (31.8-35.4); Mean Corpuscular Hemoglobin 27.5 pg (27.0-31.2); Mean Corpuscular Volume 88.2 fl (81-99); Mean Platelet Volume 9.9 fl (7.4-10.4); Monocytes # 0.4 K/mm3 (0.1-1.0); Monocytes % 6.8 % (1.7-9.3); Neutrophils # 2.8 K/mm3 (1.8-7.8); Neutrophils % 48.6 % (37.0-80.0); Nucleated Red Blood Cells # 0 10^3/uL; Nucleated Red Blood Cells % 0 %; Platelet Count 551 K/mm3 (142-424); Red Blood Count 3.74 M/mm3 (4.20-5.40); Red Cell Distribution Width 14.1 % (11.5-17.5); Red Cell Distribution Width-SD 44.9 fL; White Blood Count 5.9 K/mm3 (4.8-10.8)
[2025-03-21 15:19] LABS: Alanine Aminotransferase 17 U/L (12-78); Albumin Level 4.2 g/dl (3.5-5.0); Albumin/Globulin Ratio 1.8 (1.1-1.8); Alkaline Phosphatase 68 U/L (38-126); Anion Gap 7.9 mEq/L (5-15); Aspartate Amino Transferase 25 U/L (14-36); Bilirubin,Total 0.5 mg/dl (0.2-1.3); Blood Urea Nitrogen 15 mg/dl (7-17); Calcium 9.1 mg/dl (8.4-10.2); Carbon Dioxide 27 mmol/L (22.0-30.0); Chloride 106 mmol/L (98-107); Chol/HDL Ratio 2.3 (1-3.5); Cholesterol 211 mg/dl (140-200); Estimated Glomerular Filt Rate 82 ml/min (>60); GFR (African American) 100 ML/MIN (>60); Globulin 2.3 g/dL (1.3-3.2); Glucose 77 mg/dl (74-100); HDL Cholesterol 91 mg/dl (40-60); Potassium 4.9 mmoL/L (3.5-5.1); Sodium 136 mmol/L (136-145); Total Protein,Serum 6.5 g/dl (6.3-8.2); Triglycerides 159 mg/dl (30-150); VLDL Cholesterol 32 mg/dL (0-40)
[2025-03-21 15:31] LABS: Direct LDL Cholesterol 98.39 mg/dL (100-129)
[2025-03-21 15:46] LABS: Thyroid Stimulating Hormone 3.66 uIU/mL (0.465-4.68)
[2025-03-21 19:08] LABS: Iron 67 ug/dL (37-170)
[2025-03-21 19:26] LABS: Total Iron Binding Capacity 380 ug/dL (265-497)
== END 2025-03-21 23:59 | disposition home or self-care (01) ==
LOC: LAB.DROPOF 03-22 12:38
PROVIDERS: PCP Internal Medicine; Visit Provider Internal Medicine
DX: E78.5 Hyperlipidemia, unspecified (principal); E55.9 Vitamin D deficiency, unspecified; E03.9 Hypothyroidism, unspecified; I10 Essential (primary) hypertension; D64.9 Anemia, unspecified
CPT/HCPCS: 80053; 80061; 82652; 83540; 83550; 84443; 85025

== ENCOUNTER 2025-03-25 08:55 | Outpatient (CLI) | payer MEDICARE, SELFPAY ==
--- NOTE | 2025-03-25 09:15 | XR_ITS ---
FINAL REPORT TECHNIQUE: Bone mineral density was calculated of the lumbar spine and hip. CLINICAL HISTORY: osteoporosis on life point screening FINDINGS: Using L1-4, the bone mineral density of the spine is 1.076 g/cm2, corresponding to T-score of 0.3. Using the left hip, the bone mineral density of the femoral neck is 0.678 g/cm2, corresponding to a T-score of -1.5. Using the right hip, the bone mineral density of the femoral neck is 0.646 g/cm?, corresponding to a T-score of -1.8. NOTE: T-score: Standard deviation compared with peak bone mass of young adult mean. *Following the recommendations of the International Society of Bone densitometry, classification of hip BMD is based on the lower of two T-scores; total hip or femoral neck. IMPRESSION: Diminished bone mineral density of the bilateral hips consistent with osteopenia. Normal bone mineral density of the lumbar spine. Reviewed, Interpreted and Dictated by Jean Carlos Long MD Transcribed by Rdaha Salgado Authenticated and [facility]
== END 2025-03-25 23:59 | disposition home or self-care (01) ==
LOC: RAD 08:56
PROVIDERS: PCP Internal Medicine; Visit Provider Internal Medicine
DX: M85.88 Other specified disorders of bone density and structure, other site (principal)
CPT/HCPCS: 77080

== ENCOUNTER 2025-04-17 16:35 | Outpatient (CLI) | payer MEDICARE, SELFPAY ==
[2025-04-17 13:18] LABS: Basophils # 0.1 K/mm3 (0-0.2); Basophils % 0.6 % (0.1-2.0); Eosinophils # 0.1 Kmm3 (0.0-0.4); Eosinophils % 1.6 % (0.1-12.0); Hematocrit 33.9 % (37.0-47.0); Hemoglobin 10.6 g/dL (12.2-16.2); Immature Granulocytes # 0.01 10^3uL; Immature Granulocytes % 0.1 %; Lymphocytes # 2.6 K/mm3 (0.7-4.5); Lymphocytes % 31.1 % (10-50); Mean Corpuscular HGB Conc 31.3 g/dL (31.8-35.4); Mean Corpuscular Hemoglobin 27.3 pg (27.0-31.2); Mean Corpuscular Volume 87.4 fl (81-99); Mean Platelet Volume 10.1 fl (7.4-10.4); Monocytes # 0.6 K/mm3 (0.1-1.0); Monocytes % 6.8 % (1.7-9.3); Neutrophils % 59.8 % (37.0-80.0); Nucleated Red Blood Cells # 0 10^3/uL; Nucleated Red Blood Cells % 0 %; Platelet Count 418 K/mm3 (142-424); Red Blood Count 3.88 M/mm3 (4.20-5.40); Red Cell Distribution Width 14.6 % (11.5-17.5); Red Cell Distribution Width-SD 46.8 fL; Reticulocyte % (Auto) 1.1 % (0.9-3.2); White Blood Count 8.4 K/mm3 (4.8-10.8)
== END 2025-04-17 23:59 | disposition home or self-care (01) ==
LOC: LAB.DROPOF 16:35
PROVIDERS: PCP Internal Medicine; Visit Provider Internal Medicine
DX: D64.9 Anemia, unspecified (principal); E55.9 Vitamin D deficiency, unspecified; R89.9 Unspecified abnormal finding in specimens from other organs, systems and tissues
CPT/HCPCS: 85025; 85044

== ENCOUNTER 2025-04-29 08:16 | Outpatient (CLI) | payer MEDICARE, SELFPAY ==
--- OUTSIDE RECORDS SUMMARY | 2025-04-29 08:27 | XMS_ITS | Clinical Summary ---
Author Organization Healthcare Address [address] [id number] Care Team Providers Care Automatic Casting Machine Operator Name Role Phone Unavailable Primary Care Provider Unavailabl e Social History Tobacco Use Types Packs/Day Years Used Date Smoking Tobacco: Never Assessed Comments Unknown Sex and Gender Information Value Date Recorded Sex Assigned at Not on file Legal Sex Female 6:55 PM EDT Gender Identity Not on file Sexual Orientation Not on file Plan of Treatment Not on file Insurance MEDICARE
--- OUTSIDE RECORDS SUMMARY | 2025-04-29 08:27 | XMS_ITS | Encounter Summary ---
Author Organization Healthcare Address [address] 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, including canthus Social History Tobacco Use Types Packs/Day Years Used Date Smoking Tobacco: Never Assessed Comments Unknown Sex and Gender Information Value Date Recorded Sex Assigned at Not on file Legal Sex Female 6:55 PM EDT Gender Identity Not on file Sexual Orientation Not on file documented as of this encounter Plan of Treatment Not on file documented as of this encounter Procedures Procedure Name Priority Date/Time Associated Diagnosis Comments SURGICAL PATHOLOGY EXAM Routine 08/04/2021 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 SKIN, LEFT LOWER EYELID, EXCISION: - BASAL CELL CARCINOMA - MARGINS FREE OF TUMOR 1 5:06 PM EDT [facility] at 1706 EDT Clinical Information Basal cell carcinoma left lower eyelid 5:06 PM EDT [facility] Special and Immunohistochemical Stains Deeper sections are examined. 5:06 PM EDT [facility] Gross Description A. LEFT LOWER LID BASAL CELL CARCINOMA The specimen is received in formalin labeled left lower lid basal cell carcinoma , and consists of a 0.8 x 0.6 x 0.6 cm skin wedge. The resection margin is inked blue. The specimen is bisected and entirely submitted in cassette A1. Mariah Bradley MLT 5:06 PM EDT [facility] Note: A resident was involved in the service. I attest I examined the relevant preparations for the specimens and confirmed the diagnosis or interpretation . 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
--- NOTE | 2025-04-29 08:30 | US_ITS ---
FINAL REPORT CLINICAL HISTORY: Epigastric pain, radiates around sides COMPARISON: None FINDINGS: Sonographic images of the right upper quadrant were obtained. The pancreas is partially obscured. Fatty infiltration of the liver is present. The gallbladder appears slightly contracted, without evidence of gallstones.There is no evidence of biliary ductal dilatation. The common duct measures 2 mm. There is a hypoechoic mass in the right kidney, 1.7 x 2.0 cm in size, complex, in the mid right kidney. IMPRESSION: Fatty infiltration of the liver. Hypoechoic focus in the right kidney as described, recommend renal mass protocol CT for further evaluation. Reviewed, Interpreted and Dictated by Jean Carlos Long MD Transcribed by Radha Salgado Authenticated and [facility]
== END 2025-04-29 23:59 | disposition home or self-care (01) ==
LOC: RAD 08:16
PROVIDERS: PCP Internal Medicine; Visit Provider Internal Medicine
DX: K76.0 Fatty (change of) liver, not elsewhere classified (principal); R93.421 Abnormal radiologic findings on diagnostic imaging of right kidney; R10.13 Epigastric pain
CPT/HCPCS: 76705

== ENCOUNTER 2025-05-24 14:51 | Outpatient (CLI) | payer MEDICARE, SELFPAY ==
--- OUTSIDE RECORDS SUMMARY | 2025-05-24 14:54 | XMS_ITS | Clinical Summary ---
Author Organization Healthcare Address [address] [id number] Care Team Providers Care Picture Frame Maker Name Role Phone Unavailable Primary Care Provider [...]
--- OUTSIDE RECORDS SUMMARY | 2025-05-24 14:54 | XMS_ITS ---
Author Organization Unknown Plan of Treatment Description Planned Activity Planned Timing - Telephone encounter Sep 12, 2024 Patient Care team information Name Category Status Period Participants - - Proposed period not known -
--- OUTSIDE RECORDS SUMMARY | 2025-05-24 14:54 | XMS_ITS | Encounter Summary ---
Author Organization Healthcare Address [address] [place] [address] Care Team Providers Care Strategy Analyst Name Role Phone Unavailable Primary Care Provider Unavailabl e Encounter Details Date Type Department Care Team (Late st Contact Info) Description 08/05/2021 Lab Requisition [facility] [address] [place] [address] Wilberto Chua MD [address] [place], [place] [id number] Carcinoma in situ of skin of left [...] Exam (08/04/2021) Case Report Surgical Pathology Case: [id number] Authorizing Provider: Wilberto Chua Collected: 08/04/2021 Ordering Location: [facility] Received: 08/05/2021 1309 Pathologist: Nahed Clark MD Specimen: Eye, Left, Left lower lid basal cell carcinoma 1 5:06 PM EDT [facility] Final Diagnosis A. SKIN, LEFT LOWER EYELID, EXCISION: - BASAL CELL CARCINOMA - MARGINS FREE OF TUMOR 1 5:06 PM EDT [facility] at 1706 EDT Clinical Information Basal cell carcinoma left lower eyelid 5:06 PM EDT [facility] Special and Immunohistochemical Stains Deeper sections are examined. 5:06 PM EDT [facility] Gross Description A. LEFT LOWER LID BASAL CELL CARCINOMA The specimen is received in formalin labeled left lower lid basal cell carcinoma , and consists of a 0.8 x 0.6 x 0.6 cm skin wedge. The resection margin is inked blue. The specimen is bisected and entirely submitted in cassette A1. Mariah Bradley MLT 5:06 PM EDT [facility] Note: A resident was involved in the service. I attest I examined the relevant preparations for the specimens and confirmed the diagnosis or interpretation . 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
--- NOTE | 2025-05-24 15:00 | CT_ITS ---
FINAL REPORT TECHNIQUE: Noncontrast CT exam of the abdomen and pelvis. This study was performed with techniques to keep radiation doses as low as reasonably achievable (ALARA). Individualized dose reduction techniques using automated exposure control or adjustment of mA and/or kV according to the patient''s size were employed. CLINICAL HISTORY: Right renal mass COMPARISON: Ultrasound 04/29/2025 FINDINGS: Abdomen: Lung bases are clear. The kidneys are not well evaluated without IV contrast. No discrete right renal lesion is seen. There is an upper pole left renal lesion measuring 15 mm not well characterized without contrast. Remaining solid abdominal organs are normal. The gallbladder is unremarkable. Bowel is unremarkable. Pelvis: Pelvic bowel loops are unremarkable. Bladder is unremarkable. There is no mass or adenopathy. The patient is status post hysterectomy. IMPRESSION: No definite right renal mass. Favor normal medullary pyramid accounting for ultrasound abnormality. Indeterminate 15 mm left upper pole renal lesion. If further characterization is desired, consider CT or MRI using renal mass protocol. Reviewed, Interpreted and Dictated by Mar Liriano MD Transcribed by Aisha Morris Authenticated and [facility]
== END 2025-05-24 23:59 | disposition home or self-care (01) ==
LOC: RAD 14:52
PROVIDERS: PCP Internal Medicine; Visit Provider Internal Medicine
DX: N28.9 Disorder of kidney and ureter, unspecified (principal)
CPT/HCPCS: 74176

== ENCOUNTER 2025-06-06 08:54 | Outpatient (CLI) | payer MEDICARE, SELFPAY ==
--- OUTSIDE RECORDS SUMMARY | 2025-05-30 12:13 | XMS_ITS | Encounter Summary ---
Author Organization [facility] Address [address] [place] [address] Care Team Providers Care Boat Hop Name Role Phone Owen Laura MD Primary Care Provider [phone] Reason for Referral * Diagnostic Imaging (Routine) - Closed Specialty Diagnoses / Procedures Referred By Obie sandoval Referred To Contact Radiology Diagnoses Other screening mammogram Procedures Mammo Screening Digital Tomosynthesis Bilateral With CAD Owen Laura MD [address] [place] [address] [place] [address] Phone: tel: fax: Referral ID Status Reason Start Date Expiration Date Visits Re quested Visits Authorized [id number] Closed 04/18/2025 07/18/2026 1 1 Reason for Visit * Diagnostic Imaging (Routine) - Closed Specialty Diagnoses / Procedures Referred By Obie sandoval Referred To Contact Radiology Diagnoses Other screening mammogram Procedures Mammo Screening Digital Tomosynthesis Bilateral With CAD Owen Laura MD [address] [place] [address] [place] [address] Phone: tel: fax: Referral ID Status Reason Start Date Expiration Date Visits Re quested Visits Authorized [id number] Closed 04/18/2025 07/18/2026 1 1 Encounter Details Date Type Department Care Team (Latest Contact Info) Description 05/30/2025 12:13 PM EDT - 05/30/2025 11:59 PM EDT Hospital Encounter [facility] [address] [place] [address] Owen Laura MD [address] [facility] [address] [place] [address] Other screening mammogram Discharge Disposition: Home or Self Care Social History Tobacco Use Types Packs/Day Years Used Date Smoking Tobacco: Never Assessed Comments No Sex and Gender Information Value Date Recorded Sex Assigned at Female 05/23/2025 8:02 AM EDT Legal Sex Female 11:23 AM EDT Gender Identity Not on file Sexual Orientation Not on file documented as of this encounter Plan of Treatment Not on file documented as of this encounter Procedures Procedure Name Priority Date/Time Associated Diagnosis Comments MAMMO SCREENING DIGITAL TOMOSYNTHESIS BILATERAL W CAD Routine 05/30/2025 12:59 PM EDT Other screening mammogram documented in this encounter Results * Mammo Screening Digital Tomosynthesis Bilateral With CAD (05/30/2025 12:59 PM EDT) Anatomical Region Laterality Modality Breast N/A Mammography 06/03/2025 5:37 PM EDT Impressions 06/03/2025 5:39 PM EDT No suspicious abnormality identified. OVERALL ASSESSMENT: ACR BI-RADS CATEGORY: 1, NEGATIVE: Recommend continued routine annual screening mammogram. The standard false-negative rate of mammography is between 10% and 25%. Complex patterns or increased breast density will markedly elevate the false-negative rate of mammography. A letter, in lay terminology, with the results of this exam will be mailed to the patient. 06/03/2025 5:39 PM by Orly Grimes MD on Narrative 06/03/2025 5:39 PM EDT BILATERAL DIGITAL SCREENING MAMMOGRAM WITH TOMOSYNTHESIS CLINICAL INDICATION: Screening mammogram TECHNIQUE: Bilateral low dose full field digital breast tomosynthesis imaging was performed. CAD was utilized. COMPARISON: Prior studies dating back to 11/11/2016 FINDINGS: The breasts are heterogeneously dense, which may obscure small masses. RIGHT BREAST: No suspicious masses, calcifications, or areas of distortion are seen. LEFT BREAST: No suspicious masses, calcifications, or areas of distortion are seen. Owen Laura MD IMG MAMMOGRAPHY ORDERABLES Fin al Result documented in this encounter Visit Diagnoses Diagnosis Other screening mammogram documented in this encounter Care Teams Boat Hop Relationship Specialty Start Date End Date Owen Laura MD [address] [place] [address] [address] [facility] [address] [place] [address] PCP - General Internal Medicine 12/05/20 documented as of this encounter
--- OUTSIDE RECORDS SUMMARY | 2025-06-06 09:01 | XMS_ITS | Encounter Summary ---
Author Organization [facility] Address [address] [place] [address] Care Team Providers Care Product Accountant Name Role Phone Owen Laura MD Primary Care Provider [phone] Encounter Details Date Type Department Care Team (Late st Contact Info) Description 05/20/2025 Documentation [facility] [address] [address] Klesie Chamberlain Social History Tobacco Use Types Packs/Day Years Used Date Smoking Tobacco: Never Assessed Comments No Sex and Gender Information Value Date Recorded Sex Assigned at Female 05/23/2025 8:02 AM EDT Legal Sex Female 11:23 AM EDT Gender Identity Not on file Sexual Orientation Not on file documented as of this encounter Progress Notes * Kelsie Chamberlain - 05/20/2025 3:09 PM EDT Meets NCCN Criteria for Genetic Testing Declines genetic testing? Y Reason for decline? Declined At The Time Of Completing Assessment If Reason for Decline is Previous Testing [place] CARE Non-CARE Non-CARE Confirmation Navigator Confirmed? Patient Reported? Elevated Tyrer-Cuzick Score ? Or Equal to 20% Declines referral? Reason for decline? documented in this encounter Plan of Treatment Not on file documented as of this encounter Visit Diagnoses Not on filedocumented in this encounter Care Teams Product Accountant Relationship Specialty Start Date End Date Owen Laura MD [address] [facility] [address] [facility] [address] [place] [address] PCP - General Internal Medicine 12/05/20 documented as of this encounter
--- OUTSIDE RECORDS SUMMARY | 2025-06-06 09:01 | XMS_ITS | Encounter Summary ---
Author Organization [facility] Address [address] [place] [address] Care Team Providers Care Press Operator Meat Name Role Phone Unavailable Primary Care Provider Unavailabl e Encounter Details Date Type Department Care Team (Late st Contact Info) Description 08/05/2021 Lab Requisition [facility] [address] [place] [address] Wilberto Chua MD [address] [place] [address] Carcinoma in situ of skin of left [...] Exam (08/04/2021) Case Report Surgical Pathology Case: [id number] Authorizing Provider: Wilberto Chua Collected: 08/04/2021 Ordering Location: [facility] Received: 08/05/2021 1309 Pathologist: Nahed Clark MD Specimen: Eye, Left, Left lower lid basal cell carcinoma 1 5:06 PM EDT [facility] Final Diagnosis A. SKIN, LEFT LOWER EYELID, EXCISION: - BASAL CELL CARCINOMA - MARGINS FREE OF TUMOR 1 5:06 PM EDT [facility] at 1706 EDT Clinical Information Basal cell carcinoma left lower eyelid 5:06 PM EDT [facility] Special and Immunohistochemical Stains Deeper sections are examined. 5:06 PM EDT [facility] Gross Description A. LEFT LOWER LID BASAL CELL CARCINOMA The specimen is received in formalin labeled left lower lid basal cell carcinoma , and consists of a 0.8 x 0.6 x 0.6 cm skin wedge. The resection margin is inked blue. The specimen is bisected and entirely submitted in cassette A1. Mariah Bradley MLT 5:06 PM EDT [facility] Note: A resident was involved in the service. I attest I examined the relevant preparations for the specimens and confirmed the diagnosis or interpretation . 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
--- OUTSIDE RECORDS SUMMARY | 2025-06-06 09:01 | XMS_ITS | Clinical Summary ---
Author Organization [facility] Address [address] [place] [address] Care Team Providers Care Nut Blanker Operator Name Role Phone Owen Laura MD Primary Care Provider [phone] Allergies No known active allergies Encounters Date Type Department Care Team Description 05/30/2025 12:13 PM EDT - 05/30/2025 11:59 PM EDT Hospital Encounter [facility] [address] [place] [address] Owen Laura MD Other screening mammogram Discharge Disposition: Home or Self Care 05/30/2025 Travel 05/20/2025 Documentation [facility] [address] [place] [phone] Kelsie Chamberlain 05/15/2025 Results Follow-Up [facility] [address] [place] [phone] Kelsie Chamberlain from Last 3 Months Family History Medical History Relation Name Comments Breast cancer Daughter Ovarian cancer Mother Relation Name Status Comments Daughter Mother Social History Tobacco Use Types Packs/Day Years Used Date Smoking Tobacco: Never Assessed Comments No Sex and Gender Information Value Date Recorded Sex Assigned at Female 05/23/2025 8:02 AM EDT Legal Sex Female 11:23 AM EDT Gender Identity Not on file Sexual Orientation Not on file Plan of Treatment Health Maintenance Due Date Last Done Comments COLOGUARD 1997 COLON CANCER SCREENING 5 YEA R SIGMOIDOSCOPY 1997 COLONOSCOPY 1997 COL[address] CANCER SCREENING 1997 CT COLONOGRAPHY 1997 FECAL OCCULT BLOOD TEST 1997 FIT Testing (1 year) 1997 Pneumococcal Vaccine 50+ (2 of 2 - PPSV23) 07/21/2022 07/21/2021 COVID-19 Vaccine (3 - 2023-2 5 season) 2024 10/02/2021, 01/22/2021 ANNUAL WELLNESS VISIT 05/15/2025 HEPATITIS C SCREENING 05/15/2025 INFLUENZA VACCINE 08/14/2025 08/24/2022, , 07/29/2019 DXA SCAN 03/25/2027 03/25/2025 MAMMOGRAM 05/30/2027 05/30/2025, 05/14, 05/19/2023, Additional history exists TDAP/TD VACCINES (2 - Td or Tdap) 09/25/2034 024 ZOSTER VACCINE Completed 03/20/2019, 01/10/2019 Procedures Procedure Name Priority Date/Time Associated Diagnosis Comments MAMMO SCREENING DIGITAL TOMOSYNTHESIS BILATERAL W CAD Routine 05/30/2025 12:59 PM EDT Other screening mammogram EMILYRY GENETIC ASSESSMENT Routine 05/15/2025 8:48 AM EDT SCANNED - LABS 04/17/2025 SCANNED - LABS 04/11/2025 SCANNED - DEXA 03/25/2025 SCANNED - LABS 03/21/2025 SCANNED - LABS 03/21/2025 from Last 3 Months Results * Mammo Screening Digital Tomosynthesis Bilateral [...] calcifications, or areas of distortion are seen. us Owen Laura MD IMG MAMMOGRAPHY ORDERABLES Fin al Result * (ABNORMAL) [facility] - , (05/15/2025 8:48 AM EDT) Pathologist Mary Horvath [facility] [employer] NCCN NCCN met(A) [facility] Comment:High Risk Cancer Ris k Assessment 05/15/2025 8:48 AM EDT us Owen Laura MD GENETIC TESTING Final Result [facility] [employer]
[address] [place] [address], [place] [phone] * LABS SCANNED (04/17/2025) Only the most recent of4 resultswithin the time period is included. [facility] LAB BLOOD ORDERABLES Final Re sult * DEXA Scan (03/25/2025) Anatomical Region Laterality Modality Other [facility] CHART REVIEW TABS Final Re sult from Last 3 [place] [address] [facility] Medicare [employer] PPO Care Teams Nut Blanker Operator Relationship Specialty Start Date End Date Owen Laura MD [address] [facility] [address] [place] [address] PCP - General Internal Medicine 12/05/20
--- OUTSIDE RECORDS SUMMARY | 2025-06-06 09:01 | XMS_ITS | Encounter Summary ---
Author Organization [facility] Address [address] [place] [address] Care Team Providers Care Folder Seamer Automatic Name Role Phone Owen Laura MD Primary Care Provider [phone] Encounter Details Date Type Department Care Team (Late st Contact Info) Description 05/15/2025 Results Follow-Up [facility] [address] [place] [phone] Kelsie Chamberlain Social History Tobacco Use Types Packs/Day Years Used Date Smoking Tobacco: Never Assessed Comments No Sex and Gender Information Value Date Recorded Sex Assigned at Female 05/23/2025 8:02 AM EDT Legal Sex Female 11:23 AM EDT Gender Identity Not on file Sexual Orientation Not on file documented as of this encounter Progress Notes * Kelsie Chamberlain - 05/20/2025 3:08 PM EDT This patient recently completed the CARE risk assessment for a mammogram appointment. Based on the patient's responses, NCCN criteria for genetic testing was met. At the time of the assessment, the patient was provided with both written and video educational materials regarding genetic testing. Navigator follow-up: Upon completion of the assessment, the patient declined genetic testing. I sent the patient information regarding testing and my contact information, should they change their mind in the future. * Kelsie Chamberlain - 05/15/2025 4:14 PM EDT I sent the patient a [employer] message asking for a call to discuss assessment results. documented in this encounter Plan of Treatment Not on file documented as of this encounter Visit Diagnoses Not on filedocumented in this encounter Care Teams Folder Seamer Automatic Relationship Specialty Start Date End Date Owen Laura MD Count includes the [facility] [address] [place] [address] PCP - General Internal Medicine 12/05/20 documented as of this encounter
--- OUTSIDE RECORDS SUMMARY | 2025-06-06 09:01 | XMS_ITS | Clinical Summary ---
Author Organization [facility] Address [address] [place] [id number] Care Team Providers Care Life Underwriter Name Role Phone Unavailable Primary Care Provider Unavailabl e Social History Tobacco Use Types Packs/Day Years Used Date Smoking Tobacco: Never Assessed Comments Unknown Sex and Gender Information Value Date Recorded Sex Assigned at Not on file Legal Sex Female 6:55 PM EDT Gender Identity Not on file Sexual Orientation Not on file Plan of Treatment Not on file [facility] [address] [place] [address] MEDICARE
--- OUTSIDE RECORDS SUMMARY | 2025-06-06 09:01 | XMS_ITS | Encounter Summary ---
Author Organization [facility] Address [address] [place] [address] Care Team Providers Care Yarding And Folding Machine Operator Name Role Phone Owen Laura MD Primary Care Provider [phone] Encounter Details Date Type Department Care Team (Latest Contact Info) Description 05/30/2025 Travel Social History Tobacco Use Types Packs/Day Years [...] on filedocumented in this encounter Care Teams Yarding And Folding Machine Operator Relationship Specialty Start Date End Date Owen Laura MD [address] [facility] [address] [place] [address] PCP - General Internal Medicine 12/05/20 documented as of this encounter
[2025-06-06 09:25] LABS: Blood Urea Nitrogen 12 mg/dl (7-17); Creatinine,Serum 0.80 mg/dl (0.52-1.04); Estimated Glomerular Filt Rate 71 ml/min (>60); GFR (African American) 85 ML/MIN (>60)
--- NOTE | 2025-06-06 09:30 | CT_ITS ---
FINAL REPORT TECHNIQUE: IV contrast enhanced exam This study was performed with techniques to keep radiation doses as low as reasonably achievable, (ALARA). Individualized dose reduction techniques using automated exposure control or adjustment of mA and/or kV according to the patient''s size were employed. CLINICAL HISTORY: Left kidney mass 15 mm COMPARISON: 05/24/2025 FINDINGS: Abdomen: There are 2 hypodense lesions in the upper pole of the left kidney measuring 14 and 15 mm. There is no enhancement seen compatible with benign cysts. Remaining solid abdominal organs are normal. Gallbladder is unremarkable. The bowel is unremarkable. There is no adenopathy. Pelvis: The appendix is not visualized. The patient is status post hysterectomy. Pelvic bowel loops are unremarkable. The urinary bladder is unremarkable. There is no free fluid. No pelvic mass is seen. IMPRESSION: Left renal lesions compatible with benign simple cysts. No acute findings. Reviewed, Interpreted and Dictated by Mar Liriano MD Transcribed by Aisha Morris Authenticated and [facility]
[2025-06-06] MEDS: SODIUM CHLORIDE 0.9% 10ML SYR (RAD ONLY) 10 ML IV (10:08)
[2025-06-06] MEDS: IOPAMIDOL-370 (76%);100ML BOTTLE 75 ML IV (10:09)
== END 2025-06-06 23:59 | disposition home or self-care (01) ==
LOC: RAD 08:55
PROVIDERS: PCP Internal Medicine; Visit Provider Internal Medicine
DX: N28.89 Other specified disorders of kidney and ureter (principal)
CPT/HCPCS: 36415; 74177; 82565; 84520; Q9967